=== PATIENT | male | born 1955 | race Caucasian/White ===

== ENCOUNTER 2023-03-24 19:39 | Emergency (ER) | payer MEDICARE, SELFPAY ==
--- NOTE | 2023-03-24 19:43 | ERPHSYRPT ---
- History of Present Illness Time Seen by Provider: 03/24/23 19:43 Source: patient, family Exam Limitations: no limitations Physician History: This is a 67-year-old white male patient who 6 days ago noticed some nausea vomiting diarrhea type symptoms. He was feeling weak. He felt too weak to drive and so over the last couple days he has been attempting to hold down l iquids. The last 2 days he is actually held some liquids down orally. Today he did hold a small solid meal down. However, he had a syncopal episode today and he fell hitting his head and face. He has a forehead laceration and nasal bridge laceration. He states his tetanus status is less than 5 years old. Patient is on Plavix. He has a history of coronary disease on Plavix, anxiety issues and hypothyroidism. He currently denies chest pain. He denies shortness of breath and he denies abdominal pain. He just feels a little weak today. He stated that he wanted to see what his kidney function barcenas and his electrolytes were. Timing/Duration: today Severity: mild Associated Symptoms: weakness, No nausea, No vomiting, No abdominal pain, No shortness of breath, No chest pain Allergies/Adverse Reactions: amoxicillin [From Augmentin] Allergy (Verified 03/24/23 20:32) clavulanic acid [From Augmentin] Allergy (Verified 03/24/23 20:32) Home Medications: Alprazolam [Xanax] 1 mg PO BID PRN 03/24/23 [History] Bumetanide 0.5 mg PO DAILY 03/24/23 [History] Clopidogrel Bisulfate [Clopidogrel] 75 mg PO DAILY 03/24/23 [History] Isosorbide Mononitrate [Isosorbide Mononitrate ER] 120 mg PO DAILY 03/24/23 [History] Levothyroxine Sodium 50 mcg PO DAILY 03/24/23 [History] Travel Risk - International Travel Have you traveled outside of the country in past 3 weeks: No - Coronavirus Screening Are you exhibiting any of the following symptoms?: No Close contact with a COVID-19 positive Pt in past 14-21 Days: No - Review of Systems Constitutional: Weakness Eyes: No Symptoms Ears, Nose, & Throat: No Symptoms Respiratory: No Symptoms Cardiac: No Symptoms Abdominal/Gastrointestinal: No Symptoms Genitourinary Symptoms: No Symptoms Musculoskeletal: No Symptoms Skin: Other (Laceration skin of forehead and skin overlying nasal bridge) Neurological: No Symptoms Psychological: No Symptoms Endocrine: No Symptoms Hematologic/Lymphatic: No Symptoms Immunological/Allergic: No Symptoms All Other Systems: Reviewed and Negative - Past Medical History Pertinent Past Medical History: Yes - Past Surgical History Past Surgical History: Yes - Nursing Vital Signs Nursing Vital Signs: Initial Vital Signs Temperature 97.3 F 03/24/23 20:15 Pulse Rate 89 03/24/23 20:15 Respiratory Rate 17 03/24/23 20:15 Blood Pressure 91/59 03/24/23 20:15 O2 Sat by Pulse Oximetry 92 L 03/24/23 20:15 Pain Scale Pain Intensity 5 - Physical Exam General Appearance: no apparent distress, alert, anxiety, thin Eye Exam: PERRL/EOMI, eyes nml inspection Ears, Nose, Throat Exam: pharynx normal, moist mucous membranes, other (Stellate laceration skin overlying nasal bridge) Neck Exam: normal inspection, non-tender, supple, full range of motion Respiratory Exam: normal breath sounds, lungs clear, airway intact, No chest tenderness, No respiratory distress Cardiovascular Exam: regular rate/rhythm, normal heart sounds, normal peripheral pulses Gastrointestinal/Abdomen Exam: soft, normal bowel sounds, No tenderness Rectal Exam: not done Back Exam: normal inspection, normal range of motion, No CVA tenderness, No vertebral tenderness Extremity Exam: normal inspection, normal range of motion, pelvis stable Neurologic Exam: alert, oriented x 3, cooperative, computer tape librarian II-XII nml as tested, normal mood/affect, nml cerebellar function, nml station & gait, sensation nml Skin Exam: laceration (Stellate laceration skin overlying nasal bridge and approximately 2-1/2 cm linear, superficial skin laceration left forehead) Lymphatic Exam: No adenopathy SpO2 Interpretation: normal O2 Delivery: Room Air Procedures - Laceration/Wound Repair Other Time of Procedure: 22:40 Wound Location: forehead, face (Skin overlying nasal bridge) Wound Length (cm): 4.5 (Total length of 2 laceration sites of the face) Wound's Depth, Shape: superficial, linear, stellate Wound Explored: clean (Wound explored to the base in a bloodless field and no foreign body noted.) Irrigated: Yes Hibiclens Prep: Yes Anesthesia: 1% Lidocaine (8 cc total) Volume Anesthetic (ccs): 8 Wound Repaired With: sutures Suture Size/Type: 4-0, nylon Number of Sutures: 9 (Total 9 sutures. 3 on the forehead and 6 on the nasal bridge) Layer Closure?: No Progress: 03/24/23 23:05 Patient tolerated the procedure well. There were no complications. - Course Nursing assessment & vital signs reviewed: Yes Ordered Tests: Active Orders 24 hr Category Date Time Status EKG-ER Only STAT Care 03/24/23 20:50 Active IV Insertion STAT Care 03/24/23 20:50 Active Oxygen-ED Only Nasal Cannula 3 lpm Care 03/24/23 20:56 Active Pulse Oximetry (ED) STAT Care 03/24/23 20:50 Active Wound Care STAT Care 03/24/23 21:59 Active FACIAL BONES WO CONTRAST [CT] Stat Exams 03/24/23 20:51 Taken HEAD WITHOUT CONTRAST [CT] Stat Exams 03/24/23 20:51 Taken CBC W DIFF Stat Lab 03/24/23 20:50 Completed CMP Stat Lab 03/24/23 20:50 Completed CULTURE,URINE Stat Lab 03/24/23 21:39 Received UA W/RFX UR CULTURE Stat Lab 03/24/23 21:39 Completed Medication Summary Generic Name Dose Route Start Last Admin Trade Name Freq PRN Reason Stop Dose Admin Sodium Chloride 1,000 mls @ 100 mls/hr 03/24/23 21:00 03/24/23 22:53 Sodium Chloride 0.9% 1000 Ml IV 04/23/23 20:59 Infused .Q10H LIUDMILA Infusion Ceftriaxone Sodium/Dextrose 1 g in 50 mls @ 100 mls/hr 03/25/23 02:04 Rocephin 1 Gm-D5w 50 Ml Bag IV 03/25/23 02:33 STAT STA Discontinued Medications Generic Name Dose Route Start Last Admin Trade Name Freq PRN Reason Stop Dose Admin Bacitracin Zinc 0.9 each 03/24/23 22:52 03/24/23 22:53 Bacitracin Packet 1 Each Pckt TP 03/24/23 22:53 0.9 each STAT ONE Administration Bacitracin Zinc Confirm 03/24/23 22:53 Bacitracin Packet 1 Each Pckt Administered 03/24/23 22:54 Dose 1 each .ROUTE .STK-MED ONE Sodium Chloride 1,000 mls @ 999 mls/hr 03/24/23 23:01 03/24/23 23:06 Sodium Chloride 0.9% 1000 Ml IV 03/25/23 00:01 999 mls/hr .Q1H1M STA Administration Lidocaine HCl 10 ml 03/24/23 21:59 03/24/23 22:03 Lidocaine Hcl 1% 20 Ml Mdv 20 Ml Ml IJ 03/24/23 22:00 10 ml STAT ONE Administration Lidocaine HCl Confirm 03/24/23 22:01 Lidocaine Hcl 1% 20 Ml Mdv 20 Ml Ml Administered 03/24/23 22:02 Dose 10 ml .ROUTE .STK-MED ONE Lab/Rad Data: Laboratory Result Diagrams 03/24/23 20:50 03/24/23 20:50 Laboratory Results 03/24/23 03/24/23 03/24/23 Range/Units 21:39 20:50 20:50 WBC 7.0 (4.0-10.5) x10^3/uL RBC 4.54 (4.1-5.6) x10^6/uL Hgb 14.5 (12.5-18.0) g/dL Hct 44.6 (42-50) % MCV 98.2 (78-100) fL MCH 31.9 (26-32) pg MCHC 32.5 (32-36) g/dL RDW 13.5 (11.5-14.0) % Plt Count 186 (150-450) x10^3/uL MPV 10.8 (7.5-11.0) fL Gran % 58.6 (36.0-66.0) % Immature Gran % (Auto) 0.4 (0.00-0.4) % Nucleat RBC Rel Count 0.0 (0.00-0.1) % Eos # (Auto) 0.32 (0-0.5) x10^3/uL Immature Gran # (Auto) 0.03 (0.00-0.03) x10^3u/L Absolute Lymphs (auto) 1.69 (1.0-4.6) x10^3/uL Absolute Monos (auto) 0.81 (0.0-1.3) x10^3/uL Absolute Nucleated RBC 0.00 (0.00-0.01) x10^3u/L Lymphocytes % 24.1 (24.0-44.0) % Monocytes % 11.6 (0.0-12.0) % Eosinophils % 4.6 (0.00-5.0) % Basophils % 0.7 (0.0-0.4) % Absolute Granulocytes 4.11 (1.4-6.9) x10^3/uL Basophils # 0.05 (0-0.4) x10^3/uL Sodium 137 (137-145) mmol/L Potassium 5.0 (3.5-5.1) mmol/L Chloride 102 (98-107) mmol/L Carbon Dioxide 29 (22-30) mmol/L Anion Gap 10.6 (5-15) MEQ/L BUN 35 H (9-20) mg/dL Creatinine 1.40 H (0.66-1.25) mg/dL Estimated GFR 53.4 ML/MIN Glucose 160 H (74-106) mg/dL Calcium 8.6 (8.4-10.2) mg/dL Total Bilirubin 0.40 (0.2-1.3) mg/dL AST 20 (17-59) U/L ALT 19 (0-50) U/L Alkaline Phosphatase 49 (38-126) U/L Serum Total Protein 6.5 (6.3-8.2) g/dL Albumin 3.1 L (3.5-5.0) g/dL Urine Color Yellow (Yellow) Urine Appearance Cloudy A (Clear) Urine pH 5.5 (4.6-8.0) Ur Specific [place] 1.010 (1.005-1.030) Urine Protein 30 (Negative) Urine Glucose (UA) Negative (Negative) mg/dL Urine Ketones Negative (Negative) Urine Blood Moderate A (Negative) Urine Nitrite Positive A (Negative) Urine Bilirubin Negative (Negative) Urine Urobilinogen 0.2 (0.2) mg/dL Ur Leukocyte Esterase Large A (Negative) U Hyaline Cast (Auto) NONE SEEN (0-2) /LPF Urine Microscopic RBC 0-2 (0-5) /HPF Urine Microscopic WBC >100 A (0-5) /HPF Ur Epithelial Cells None Seen (None Seen) /HPF Urine Bacteria Many A (None Seen) /HPF Urine Culture Reflexed YES (NO) - Progress Progress: improved, re-examined Progress Note: 03/24/23 22:04 CT scan of the head was interpreted by the radiologist. It is a normal study. I reviewed with the impression. CAT scan of the facial bones without contrast shows an edentulous patient with mild left maxillary sinus disease. Otherwise negative study. 03/25/23 02:07 This patient's medical history is 1 of moderate complexity. The level of complexity and the work-up performed based on review of the patient's past medical history, review of the patient's medication list, review of the patient's drug allergy list, history of present illness and physical findings on examination. This patient work-up includes head CT, facial bone CT, urinalysis, CBC, CMP and placement of an intravenous line infusion of normal saline solution. Urinalysis shows urinary tract infection. Facial and forehead lacerations were sutured. Patient received 2 L of normal saline solution infusion. He is feeling much better. He denies chest pain and denies shortness of breath. He is being discharged home with instructions to drink plenty of clear liquids and take his medication antibiotics as prescribed. Suture removal in 7 days. Counseled pt/family regarding: lab results, diagnosis, need for follow-up, rad results Medical Desision Making - Diagnostic Testing Diagnostic test were ordered, analyzed, and reviewed by me: Yes Radiological Interpretation: Reviewed by me, Teleradiologist Report - Risk of complications Low Risk: Low risk of morbidity from additional dx testing or treatment The pt has a mod risk of morbidity or mortality based on: Need for prescription drug management - Departure Departure Disposition: Home Clinical Impression: Syncopal episodes, UTI (urinary tract infection) Condition: Stable Critical Care Time: No Referrals: TERA RAMON MD [Primary Care Provider] - Follow up/PCP as directed Instructions: Laceration Repair With Stitches (DC) Additional Instructions: Keep suture repair sites dry for 24 hours. After 24 hours may wash the areas with soap and water without scrubbing the sites. Blot dry or use a chairman & chief executive officer to dry the site and then reapply antibiotic ointment to each site gently each day. Suture removal in 7 days. Drink plenty of fluids. Take all your medications as prescribed. Prescriptions: Ciprofloxacin [Cipro 500 MG] 500 mg PO BID #14 tablet
[2023-03-24] MEDS ORDERED: Sodium Chloride 0.9% 1000 ML 1,000 ML ONE ×2 (20:57→23:05)
[2023-03-24] MEDS ORDERED: Sodium Chloride 0.9% 1000 ML 1,000 ML IV SCH (21:00)
[2023-03-24 21:24] LABS: Absolute Neutrophil Ct (ANC) 4.11 x10^3/uL (1.4-6.9); BASOPHIL % 0.7 % (0.0-0.4); Basophil (Absolute #) 0.05 x10^3/uL (0-0.4); Eosinophil % 4.6 % (0.00-5.0); Eosinophil (Absolute #) 0.32 x10^3/uL (0-0.5); Hematocrit 44.6 % (42-50); Hemoglobin 14.5 g/dL (12.5-18.0); IMMATURE GRAN # 0.03 x10^3u/L (0.00-0.03); IMMATURE GRAN % 0.4 % (0.00-0.4); Lymphocyte (Absolute #) 1.69 x10^3/uL (1.0-4.6); Lymphocytes % 24.1 % (24.0-44.0); Mean Cell Volume 98.2 fL (78-100); Mean Corpuscular Hemoglobin 31.9 pg (26-32); Mean Corpuscular Hgb Concent. 32.5 g/dL (32-36); Mean Platelet Volume 10.8 fL (7.5-11.0); Monocyte (Absolute #) 0.81 x10^3/uL (0.0-1.3); Monocytes % 11.6 % (0.0-12.0); Neutrophil % 58.6 % (36.0-66.0); Platelet Count 186 x10^3/uL (150-450); Red Blood Count 4.54 x10^6/uL (4.1-5.6); Red Cell Distribution Width 13.5 % (11.5-14.0)
[2023-03-24] MEDS ORDERED: XYLOCAINE 1% HCL 20 ML MDV IJ ONE (21:59)
[2023-03-24] MEDS ORDERED: XYLOCAINE 1% HCL 20 ML MDV ONE (22:01)
[2023-03-24 22:04] LABS: ALBUMIN 3.1 g/dL (3.5-5.0); ANION GAP 10.6 MEQ/L (5-15); BILIRUBIN,TOTAL 0.4 mg/dL (0.2-1.3); Calcium 8.6 mg/dL (8.4-10.2); Creatinine 1 1.4 mg/dL (0.66-1.25); EST GLOMERULAR FILTRATION RATE 53.4 ML/MIN; Total Protein 6.5 g/dL (6.3-8.2)
[2023-03-24] MEDS ORDERED: BACIGUENT PACKET TP ONE (22:52)
[2023-03-24] MEDS ORDERED: BACIGUENT PACKET ONE (22:53)
[2023-03-24] MEDS ORDERED: Sodium Chloride 0.9% 1000 ML 1,000 ML IV STA (23:01)
[2023-03-25 01:36] LABS: ADD URINE CULTURE? YES (NO); Appearance Cloudy (Clear); Bacteria Many /HPF (None Seen); Bilirubin Negative (Negative); Blood Moderate (Negative); Epithelial Cells None Seen /HPF (None Seen); Glucose, Urine Negative (Negative); Hyaline Casts NONE SEEN /LPF (0-2); Ketones Negative (Negative); Leukocyte Esterase Large (Negative); Nitrite Positive (Negative); Ph 5.5 (4.6-8.0); Protein,Urine Dip 30 (Negative); RBC 0-2 /HPF (0-5); Urobilinogen 0.2 mg/dL (0.2); WBC >100 /HPF (0-5)
[2023-03-25] MEDS ORDERED: ROCEPHIN 1 Gm-D5w 50 ml Bag** 1 G/50 ML IVPB IV STA (02:04)
[2023-03-25] MEDS ORDERED: ROCEPHIN 1 Gm-D5w 50 ml Bag** 1 G/50 ML IVPB IV ONE (02:08)
[2023-03-25 02:57] VITALS: BP 120/62; PULSE 62; O2SAT 97
--- NOTE | 2023-03-25 08:41 | XRAY ---
Indication: Status post fall. Left supraorbital laceration. Blood thinner therapy. Multiple contiguous axial images obtained through the head without contrast. Comparison: None Age-appropriate global atrophy. No acute intracranial hemorrhage, abnormal extra-axial fluid collection, or mass effect. Fourth ventricle is midline without hydrocephalus. Osei-white matter differentiation preserved. Bony calvarium intact. Visualized paranasal sinuses and mastoid air cells are clear. CT facial bones report assembly. Impression: CT head without contrast exam is negative.
--- NOTE | 2023-03-25 08:43 | XRAY ---
Indication: Status post fall. Left supraorbital laceration. Blood thinner therapy. Multiple contiguous axial images obtained through the facial bones. Sagittal and coronal reformatted images obtained. Comparison: None Patient is edentulous. Bridge of nose demonstrates small laceration with tiny subcutaneous emphysema. No acute fracture, suspicious bony lesions, or radiopaque foreign body. Orbits including roof, duval, and floors intact.. Mild mucosal thickening floor left maxillary sinus without fluid leveling. Remaining paranasal sinuses and nasal passages are clear. Incidental mild nasal septal deviation to the left and tiny right middle turbinate forrest bullosa. Visualized noncontrasted soft tissues are unremarkable. Impression: 1. Nasal laceration. Negative acute fracture. 2. Incidental mild paranasal sinus disease, right middle turbinate forrest bullosa, and nasal septal deviation.
== END 2023-03-25 03:05 | disposition home or self-care (01) ==
LOC: ED 19:39
DX: N39.0 Urinary tract infection, site not specified (principal); R55 Syncope and collapse; S01.81XA Laceration without foreign body of other part of head, initial encounter; S01.21XA Laceration without foreign body of nose, initial encounter; W19.XXXA Unspecified fall, initial encounter; R53.1 Weakness; R11.2 Nausea with vomiting, unspecified; R19.7 Diarrhea, unspecified; Z79.02 Long term (current) use of antithrombotics/antiplatelets; Z79.899 Other long term (current) drug therapy
CPT/HCPCS: 12013; 36000; 36415; 70450; 70486; 80053; 81001; 85025; 87077; 87086; 87186; 93005; 94760; 96360; 96361; 96365; 96372; 99284; J0696; A9270-GY